=== PATIENT | female | born 1980 | race Caucasian/White ===

== ENCOUNTER 2016-08-30 14:00 | Inpatient (IN) | payer BC ==
[2016-08-30] MEDS: ELECTROLYTE-148 SOLN 1,000 ML IV SCH (17:15)
--- NOTE | 2016-08-30 18:27 | HP ---
Past Medical History - Primary Care Physician PCP:: Gracie Rodriguez - Admission Chief Complaint: Previous Section History of Present Illness: 36 edc 08/26/16 ega 40.4 weeks with previous cs for repeat CS AMA +AFM no rom no CALIX unremarkable care History Source: Patient - Past Medical History ...: 3 ...Para: 2 ...EDC by Kiya: 08/31/16 - Past Surgical History Past Surgical History: Yes: Hx Myomectomy: No Hx Transabdominal Cerclage: No - Smoking History Have you smoked in the past 12 months: No - Alcohol/Substance Use Hx Alcohol Use: No History of Substance Use: reports: None - Social History Usual Living Arrangement: Yes: With Spouse History of Recent Travel: No Home Medications - Allergies Allergies/Adverse Reactions: Allergies Allergy/AdvReac Type Severity Reaction Status Date / Time No Known Allergies Allergy Verified 08/30/16 18:38 - Home Medications Home Medications: Ambulatory Orders Vit No.130/Iron/FA [ Vitamins] 1 each PO DAILY 08/30/16 Review of Systems - Review of Systems Constitutional: reports: No Symptoms Eyes: reports: No Symptoms HENT: reports: No Symptoms Neck: reports: No Symptoms Cardiovascular: reports: No Symptoms Respiratory: reports: No Symptoms Gastrointestinal: reports: No Symptoms Genitourinary: reports: No Symptoms Breasts: reports: No Symptoms Reported Musculoskeletal: reports: No Symptoms Integumentary: reports: No Symptoms Neurological: reports: No Symptoms Endocrine: reports: No Symptoms Hematology/Lymphatic: reports: No Symptoms Psychiatric: reports: No Symptoms Physical Exam - Maternity Constitutional: Yes: Well Nourished, No Distress Neck: Yes: WNL Lungs: Clear to auscultation Breast(s): Yes: WNL - Abdominal Exam/OB Fundal Height: 40 Number of Fetuses: Single Presentation: Vertex Contractions: No Heart Rate Location: LL Category: I - Vaginal Exam/OB Vaginal Bleediing: No - Physical Exam Musculoskeletal: Yes: WNL Extremities: Yes: WNL Edema: No Psychiatric: Yes: WNL, Alert, Oriented Hemorrhage Risk Assessment - Risk Factors Medium Risk Factors: Yes: Prior , uterine surgery,or multiple laparotomies Risk Score: 1 Risk Level: Medium Risk Problem List - Problems (1) Previous delivery, antepartum Code(s): O34.219 - MATERNAL CARE FOR UNSP TYPE SCAR FROM PREVIOUS DEL Assessment/Plan IUp at 40.4 week Prev CS x1 AMA Plan Repeat Section
[2016-08-30] MEDS ORDERED: METHYLERGONOVINE MALEATE 0.2 MG/1 ML AMP IM PRN (18:29)
[2016-08-30] MEDS ORDERED: SENNOSIDES/DOCUSATE COMBO (SENNA PLUS) TABLET (UD) PO PRN (18:29)
[2016-08-30 18:31] VITALS: BMI 34.1
[2016-08-30] MEDS ORDERED: oxyCODONE HCL 5 MG TABLET PO PRN (18:41)
[2016-08-30] MEDS ORDERED: ACETAMINOPHEN 325 MG TABLET (FP) PO PRN (18:41)
[2016-08-30 20:21] LABS: ARTERIAL BLD GAS O2 SATURATION 29.7 % (90-98.9); ARTERIAL BLOOD GAS BASE EXCESS -1.7 meq/l (-2-2); ARTERIAL BLOOD GAS pH 7.37 (7.35-7.45)
[2016-08-30 20:22] LABS: LPM/O2% 21%; PT. ON O2? NO
[2016-08-30 20:23] LABS: TYPE OF O2 ROOM AIR
[2016-08-30 20:24] LABS: ARTERIAL BLOOD GAS PO2 16.9 mmHg (80-100)
[2016-08-30 20:26] LABS: VENOUS PH 7.47 (7.32-7.42)
[2016-08-30 20:28] LABS: VENOUS BLOOD GAS HCO3 19.8 meq/L (19-25)
--- NOTE | 2016-08-30 20:43 | OP ---
Operative Note - Note: Operative Date: 08/30/16 Pre-Operative Diagnosis: Previous Section Operation: Repeat Low Transverse Section Findings: Live female infant Post-Operative Diagnosis: Same as Pre-op Surgeon: Gracie Rodriguez Strike On Machine Operator: Timur Chauhan Anesthesiologist/GENERAL DOC: Antonia Garcia Anesthesia: Spinal Estimated Blood Loss (mls): 600 Operative Report Dictated: Yes
[2016-08-30] MEDS ORDERED: ONDANSETRON 4 MG/2 ML VIAL IVPB PRN (21:10)
[2016-08-30] MEDS: IBUPROFEN 800 MG/8 ML IJ IVPB PRN (22:30)
[2016-08-30] MEDS: D5W-LR W/ 20 UNITS OXYTOCIN 1,000 ML IV SCH (22:45)
--- NOTE | 2016-08-30 23:30 | OP ---
DATE OF OPERATION: 08/30/2016 PREOPERATIVE DIAGNOSIS: Previous section. OPERATION: Repeat low transverse section. POSTOPERATIVE DIAGNOSIS: Previous section, live female infant. SURGEON: TROY DUCKWORTH MD PROFILER: REAL [place]. unavailable. ANESTHESIA: Spinal. ESTIMATED BLOOD LOSS: 600 mL. WOUND CLASSIFICATION: Clean, contaminated. PROCEDURE: The patient was taken to the operating room, placed in supine position, prepped and draped in the usual sterile fashion. Pfannenstiel skin incision was made with a scalpel. Cautery was then used to go through layers of abdominal wall to the rectus fascia. The fascia was cut in the midline and cautery was then used to open the fascia in smiling fashion. Hook was then used to bluntly and sharply dissect the rectus muscle off the fascia. The muscle was split in the midline. The peritoneal cavity was then entered and carried upward and downward. Bladder retractor was then placed. Vesicouterine section was then entered with a scalpel an low transverse uterine incision was then made. The incision was carried upward using bandage scissors. Live female infant was delivered in LOT position, nuchal cord x1, reduced. Cord clamped and cut. Cord blood obtained. Placenta was manually extracted from the uterus. The uterus exteriorized and cleaned with clean lap pads. Uterine incision then closed using 0 Biosyn suture, first layer continuous interlocking, second layer imbricating the first layer. Hemostasis was achieved using [id number] sutures. Uterus interiorized. Tubes and ovaries noted to be normal. Peritoneal sweep done. The peritoneum closed using 0 Biosyn suture. Fascia was then closed using 0 Vicryl suture in 2 parts. Subcutaneous tissue was closed using 0 Biosyn suture and the skin was then closed using 3-0 Vicryl in subcuticular fashion. The wound was washed and dressed. The patient tolerated the procedure well and was taken to the recovery room in stable condition. TROY DUCKWORTH M.D. JOSE/[id number]
[2016-08-31] MEDS ORDERED: CITRIC ACID/SODIUM CITRATE 30 ML UNIT-DOSE CUP PO ONE (00:23)
[2016-08-31] MEDS ORDERED: TUBERCULIN PPD 5 TU/0.1ML SYRINGE (IN PATIENT USE ONLY) ID ONE (01:15)
[2016-08-31] MEDS: D5W-LR W/ 20 UNITS OXYTOCIN 1,000 ML IV SCH ×2 (05:21→12:35)
--- NOTE | 2016-08-31 07:06 | PN ---
Progress Note (SOAP) - Subjective Chief Complaint: Pt doing well - Current Medications Current Medications: Active Medications Acetaminophen (Tylenol -) 325 mg PO Q4H PRN PRN Reason: PAIN Stop: 09/02/16 18:40 Acetaminophen (Tylenol -) 650 mg PO Q4H PRN PRN Reason: PAIN Stop: 09/02/16 18:40 Bisacodyl (Dulcolax Suppository -) 10 mg RC PRN PRN PRN Reason: CONSTIPATION Diphenhydramine HCl (Benadryl Injection -) 25 mg IVPUSH Q4H PRN PRN Reason: Pruritis Parenteral Electrolytes (Plasma-Lyte 148 -) 1,000 mls @ 125 mls/hr IV ASDIR [facility] Last Admin: 08/30/16 17:15 Dose: 125 mls/hr Dextrose/Lactated Ringer's (Pitocin 20 Units In D5-Lr -) 1,000 mls @ 125 mls/ hr IV ASDIR [facility] Last Admin: 08/31/16 05:21 Dose: 125 mls/hr Ibuprofen (Motrin -) 600 mg PO Q4H PRN PRN Reason: PAIN Ibuprofen (Caldolor Injection -) 800 mg IVPB Q6H PRN PRN Reason: FEVER Last Admin: 08/30/16 22:30 Dose: 800 mg Methylergonovine Maleate (Methergine Injection -) 0.2 mg IM Q4H PRN PRN Reason: Excessive Bleeding (L&D) Oxycodone HCl (Roxicodone -) 5 mg PO Q4H PRN PRN Reason: PAIN SCALE 1-5 Oxycodone HCl (Roxicodone -) 10 mg PO Q4H PRN PRN Reason: PAIN SCALE 6-10 Multivit/Folic Acid/Iron ( Vitamins (Sjr) -) 1 tab PO DAILY [facility] Senna/Docusate Sodium (Pericolace -) 2 tablet PO HS PRN PRN Reason: CONSTIPATION Simethicone (Mylicon -) 80 mg PO Q4H PRN PRN Reason: GAS - Objective Vital Signs: Vital Signs Temperature 98.3 F 08/31/16 05:16 Pulse Rate 79 08/31/16 05:16 Respiratory Rate 18 08/31/16 05:22 Blood Pressure 118/57 08/31/16 05:16 O2 Sat by Pulse Oximetry (%) 99 08/30/16 21:45 Constitutional: Yes: Well Nourished, No Distress Neck: Yes: WNL Gastrointestinal: Yes: WNL ....Post : Yes: Uterus firm, Uterus non-tender Breast(s): Yes: WNL Edema: No Wound/Incision: Yes: Clean/Dry, Well Approximated, Open to air Psychiatric: Yes: WNL, Alert, Oriented Problem List - Problems (1) Previous delivery, antepartum Code(s): O34.219 - MATERNAL CARE FOR UNSP TYPE SCAR FROM PREVIOUS DEL (2) delivery delivered Code(s): O82 - ENCOUNTER FOR DELIVERY WITHOUT INDICATION Assessment/Plan POD 1 CS Plan OOB Clear Percocet
[2016-08-31 08:55] LABS: BASOPHIL 0.3 % (0-2.0); EOSINOPHIL 0.5 % (0-4.5); MCH 28.7 pg (25.7-33.7); MCHC 33.1 g/dl (32.0-36.0); MEAN CELL VOLUME 86.7 fl (80-96); MEAN PLT VOLUME 9.4 fl (7.5-11.1); NEUTROPHILS 81.8 % (42.8-82.8); PLATELET COUNT 114 K/MM3 (134-434); WHITE BLOOD COUNT 9.2 K/mm3 (4.0-10.0)
[2016-08-31] MEDS: PRENATAL VITAMINS W/ FOLIC ACID TABLET (FP) PO SCH (09:40)
[2016-08-31] MEDS: IBUPROFEN 800 MG/8 ML IJ IVPB PRN (12:35)
--- NOTE | 2016-08-31 16:54 | PN ---
Progress Note (short form) - Note Progress Note: ANESTHESIOLOGY POST-OP CHECK 36F s/p under spinal anesthesia POD #1. No acute complaints. Denies: N /V, backache, headache, numbness, weakness. Ambulating and tolerating PO. Pain 5 /10 and tolerable. Vital Signs Temperature 97.7 F 08/31/16 14:00 Pulse Rate 78 08/31/16 14:00 Respiratory Rate 18 08/31/16 16:00 Blood Pressure 106/58 08/31/16 14:00 O2 Sat by Pulse Oximetry (%) 99 08/30/16 21:45 Active Medications Acetaminophen (Tylenol -) 325 mg PO Q4H PRN PRN Reason: PAIN Stop: 09/02/16 18:40 Acetaminophen (Tylenol -) 650 mg PO Q4H PRN PRN Reason: PAIN Stop: 09/02/16 18:40 Bisacodyl (Dulcolax Suppository -) 10 mg RC PRN PRN PRN Reason: CONSTIPATION Diphenhydramine HCl (Benadryl Injection -) 25 mg IVPUSH Q4H PRN PRN Reason: Pruritis Parenteral Electrolytes (Plasma-Lyte 148 -) 1,000 mls @ 125 mls/hr IV ASDIR [facility] Last Admin: 08/30/16 17:15 Dose: 125 mls/hr Dextrose/Lactated Ringer's (Pitocin 20 Units In D5-Lr -) 1,000 mls @ 125 mls/ hr IV ASDIR [facility] Last Admin: 08/31/16 12:35 Dose: 125 mls/hr Ibuprofen (Motrin -) 600 mg PO Q4H PRN PRN Reason: PAIN Ibuprofen (Caldolor Injection -) 800 mg IVPB Q6H PRN PRN Reason: FEVER Last Admin: 08/31/16 12:35 Dose: 800 mg Methylergonovine Maleate (Methergine Injection -) 0.2 mg IM Q4H PRN PRN Reason: Excessive Bleeding (L&D) Oxycodone HCl (Roxicodone -) 5 mg PO Q4H PRN PRN Reason: PAIN SCALE 1-5 Oxycodone HCl (Roxicodone -) 10 mg PO Q4H PRN PRN Reason: PAIN SCALE 6-10 Multivit/Folic Acid/Iron ( Vitamins (Sjr) -) 1 tab PO DAILY [facility] Last Admin: 08/31/16 09:40 Dose: Not Given Senna/Docusate Sodium (Pericolace -) 2 tablet PO HS PRN PRN Reason: CONSTIPATION Simethicone (Mylicon -) 80 mg PO Q4H PRN PRN Reason: GAS Gen: awake, alert No apparent anesthesia complications. Pain well controlled. Continue management as per primary team.
[2016-08-31] MEDS ORDERED: BISACODYL 10 MG SUPP.RECT RC PRN (18:29)
[2016-08-31] MEDS ORDERED: OXYCODONE/APAP 5/325MG COMBO TABLET PO PRN ×2 (18:30)
[2016-08-31] MEDS: SIMETHICONE 80 MG TAB.CHEW (FP) PO PRN (19:50)
[2016-08-31] MEDS: ACETAMINOPHEN 325 MG TABLET (FP) PO PRN (19:51)
[2016-08-31] MEDS: IBUPROFEN 600 MG TABLET (FP) PO PRN (19:51)
[2016-09-01] MEDS: ACETAMINOPHEN 325 MG TABLET (FP) PO PRN ×5 (01:19→20:59)
[2016-09-01] MEDS: SIMETHICONE 80 MG TAB.CHEW (FP) PO PRN ×5 (01:19→20:58)
[2016-09-01] MEDS: IBUPROFEN 600 MG TABLET (FP) PO PRN ×5 (01:20→20:58)
[2016-09-01] MEDS: PRENATAL VITAMINS W/ FOLIC ACID TABLET (FP) PO SCH (09:26)
--- NOTE | 2016-09-01 10:35 | PN ---
Post Progress Note - Subjective Subjective: Pt seen/evaluated. Doing well. Pain controlled, tolerating diet. Ambulating, voiding, passing flatus. No CP/SOB/F/C/CALIX. Type of Delivery: Repeat C/S Vital Signs: Vital Signs Temperature 97.5 F L 09/01/16 10:00 Pulse Rate 77 09/01/16 10:00 Respiratory Rate 20 09/01/16 10:00 Blood Pressure 120/68 09/01/16 10:00 O2 Sat by Pulse Oximetry (%) 99 08/30/16 21:45 Breast Exam: Yes: Soft Uterus: Yes: Fundus Firm, Fundus below umbilicus Incision: Yes: Sutures intact (with steri strips) Abdomen/GI: Yes: Passing flatus, Tolerating PO. No: Abdomen soft, Abdominal Distention, Tender Lochia: No: Rubra Lochia, amount: Small Extremities: Yes: Calves non-tender. No: Edema Perineum: Yes: Intact Activity: Ambulating - Labs Labs: CBC WBC 9.2 K/mm3 (4.0-10.0) 08/31/16 07:45 RBC 3.38 M/mm3 (3.60-5.2) L 08/31/16 07:45 Hgb 9.7 GM/dL (10.7-15.3) L D 08/31/16 07:45 Hct 29.3 % (32.4-45.2) L D 08/31/16 07:45 MCV 86.7 fl (80-96) 08/31/16 07:45 MCHC 33.1 g/dl (32.0-36.0) 08/31/16 07:45 RDW 15.0 % (11.6-15.6) 08/31/16 07:45 Plt Count 114 K/MM3 (134-434) L D 08/31/16 07:45 MPV 9.4 fl (7.5-11.1) 08/31/16 07:45 Neutrophils % 81.8 % (42.8-82.8) 08/31/16 07:45 Lymphocytes % 12.9 % (8-40) 08/31/16 07:45 Monocytes % 4.5 % (3.8-10.2) 08/31/16 07:45 Eosinophils % 0.5 % (0-4.5) 08/31/16 07:45 Basophils % 0.3 % (0-2.0) 08/31/16 07:45 Problem List - Problems (1) delivery delivered Code(s): O82 - ENCOUNTER FOR DELIVERY WITHOUT INDICATION Assessment/Plan 36 y/o POD#2 s/p repeat low transverse c section, doing well - AFVSS - Hgb 9.7 post op - stable - regular diet, PO pain meds, encourage ambulation - plan for discharge home in a.m.
--- NOTE | 2016-09-01 10:36 | DS ---
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 Condition: Good - Instructions Diet, Activity, Other Instructions: Physical activity Resume your normal everyday activity as tolerated no heavy lifting or exercise until seen by your surgeon. You may walk unlimited tammi of and climb stairs. You may resume driving the car when you feel safe and comfortable behind the wheel. No sexual activity as instructed. Wound care If you have a bandage, leave it on, and keep dry for 48-72 hours. After that time discard the outer bandage. If they are tapes on the skin under the out of bandage leave them in place. They will peel off in the next 7 to 10 days. Do Not Peel them off. You may shower the day after surgery. If there are tapes present on the skin, you may shower over them. Diet There are no dietary restrictions. Eat healthy, high-fiber foods. Drink 6 to 8 glasses of liquid each day. This will assist in keeping your bowels are regular. Pain management You may take Tylenol or acetaminophen or Ibuprofen (for example, Motrin, Advil etc.) from my pain prescription medication is ordered should be taken as prescribed for moderate to severe pain. Call MD for any of the following: Severe pain not relieved by medication Fever of 101 or higher Excessive bleeding or drainage on dressing Inability to urinate Referrals: Gracie Rodriguez MD [Staff Physician] - 1 Week Disposition: HOME - Home Medications Comprehensive Discharge Medication List: Ambulatory Orders Oxycodone HCl/Acetaminophen [Percocet 5-325 mg Tablet -] 1 tab PO Q4H #20 tablet MDD 6 08/30/16 Vit No.130/Iron/FA [ Vitamins] 1 each PO DAILY 08/30/16
[2016-09-01] MEDS: ELECTROLYTE-148 SOLN 1,000 ML IV SCH (19:11)
[2016-09-01] MEDS: D5W-LR W/ 20 UNITS OXYTOCIN 1,000 ML IV SCH (19:11)
[2016-09-01] MEDS: oxyCODONE HCL 5 MG TABLET PO PRN (20:58)
[2016-09-02] MEDS: IBUPROFEN 600 MG TABLET (FP) PO PRN (02:51)
[2016-09-02] MEDS: SIMETHICONE 80 MG TAB.CHEW (FP) PO PRN ×2 (02:51→08:28)
[2016-09-02] MEDS: ACETAMINOPHEN 325 MG TABLET (FP) PO PRN ×2 (02:51→08:30)
[2016-09-02] MEDS: oxyCODONE HCL 5 MG TABLET PO PRN ×2 (02:52→08:28)
[2016-09-02 08:39] LABS: BASOPHIL 0.3 % (0-2.0); EOSINOPHIL 1.4 % (0-4.5); MCH 28.2 pg (25.7-33.7); MCHC 32.4 g/dl (32.0-36.0); NEUTROPHILS 73.2 % (42.8-82.8); PLATELET COUNT 124 K/MM3 (134-434); RDW 15.3 % (11.6-15.6); WHITE BLOOD COUNT 7.3 K/mm3 (4.0-10.0)
--- NOTE | 2016-09-02 08:52 | PN ---
Post Progress Note - Subjective Subjective: Pt without complaints. Pain controlled, tolerating diet, ambulating, voiding. NO CP/SOB/F/C/CALIX. Type of Delivery: Repeat C/S Vital Signs: Vital Signs Temperature 98.0 F 09/01/16 22:00 Pulse Rate 71 09/01/16 22:00 Respiratory Rate 18 09/01/16 22:00 Blood Pressure 107/63 09/01/16 22:00 O2 Sat by Pulse Oximetry (%) 99 08/30/16 21:45 Breast Exam: Yes: Soft Uterus: Yes: Fundus Firm, Fundus below umbilicus Incision: Yes: Sutures intact Abdomen/GI: Yes: Abdomen soft, Passing flatus, Tolerating PO. No: Tender Lochia: Yes: Rubra Lochia, amount: Small Extremities: Yes: Calves non-tender. No: Edema Perineum: Yes: Intact Activity: Ambulating - Labs Labs: CBC WBC 7.3 K/mm3 (4.0-10.0) 09/02/16 07:50 RBC 3.33 M/mm3 (3.60-5.2) L 09/02/16 07:50 Hgb 9.4 GM/dL (10.7-15.3) L 09/02/16 07:50 Hct 29.0 % (32.4-45.2) L 09/02/16 07:50 MCV 87.0 fl (80-96) 09/02/16 07:50 MCHC 32.4 g/dl (32.0-36.0) 09/02/16 07:50 RDW 15.3 % (11.6-15.6) 09/02/16 07:50 Plt Count 124 K/MM3 (134-434) L 09/02/16 07:50 MPV 9.0 fl (7.5-11.1) 09/02/16 07:50 Neutrophils % 73.2 % (42.8-82.8) 09/02/16 07:50 Lymphocytes % 20.0 % (8-40) D 09/02/16 07:50 Monocytes % 5.1 % (3.8-10.2) 09/02/16 07:50 Eosinophils % 1.4 % (0-4.5) D 09/02/16 07:50 Basophils % 0.3 % (0-2.0) 09/02/16 07:50 Problem List - Problems (1) delivery delivered Code(s): O82 - ENCOUNTER FOR DELIVERY WITHOUT INDICATION Assessment/Plan 36 y/o POD#3 s/p repeat low transverse c section, doing well - AFVSS - Hgb 9.4 post op - stablej, asymptomatic - continue vitamins - regular diet, PO pain meds, encourage ambulation - discharge home today
[2016-09-02 09:41] VITALS: BP 105/66; PULSE 56; TEMP 97.6
[2016-09-02] MEDS: PRENATAL VITAMINS W/ FOLIC ACID TABLET (FP) PO SCH (10:08)
--- NOTE | 2016-09-05 13:30 | PATH ---
Surgical Pathology Report Patient Name: AQUILES ELAINE [facility]. Rec. #: [id number] /Age/Gender: 1980 (Age: 36) / F Account: [id number] Location: [facility] OBS/SERVICES ADVISOR Taken: 08/30/2016 Received: 09/01/2016 Reported: 09/05/2016 Physicians: Gracie Rodriguez M.D. Specimen(s) Received PLACENTA Clinical History C/section 2007 Repeat c/section Final Diagnosis PLACENTA, DELIVERY: FOCALLY DISRUPTED, SMALL (<400 GM), THIRD TRIMESTER PLACENTA WITH MODERATE PREVILLOUS, PERIVILLOUS, AND PRECHORIONIC FIBRIN DEPOSITION, THREE VESSEL UMBILICAL CORD, AND PLACENTAL MEMBRANES FOCAL MILD AMNION HYPERPLASIA. Electronically Signed Owen Jama M.D. Gross Description The specimen is received fresh, labeled "placenta" and is a 395 gram, 15.0 x 13.5 x 2.7 cm placenta with attached membranes and umbilical cord. The attached membranes are dale, focally thickened and insert marginally. The umbilical cord measures 12.5 cm in length and averages 1 cm in diameter. The cord inserts eccentrically, 3.5 cm to the nearest margin. No true knots or strictures are identified. Cut surface of the umbilical cord reveals 3 vessels. The surface is carter blue with fibrin deposition and appropriate caliber vessels. The maternal surface is red-brown and intact. Sectioning reveals red-brown, spongy parenchyma. No focal lesions are identified. Call Worker sections are submitted in three cassettes as follows: 1- membrane rolls and umbilical cord; 2-3- full thickness sections of placenta. /09/04/2016 [facility]09/04/2016
== END 2016-09-02 12:30 | disposition home or self-care (01) | DRG 766 ==
LOC: JLDR 17:08 → J3W 23:16
PROVIDERS: ADMIT Obstetrics & Gynecology; ATTEND Obstetrics & Gynecology
PROC: 10D00Z1 Extraction of Products of Conception, Low, Open Approach (ICD-10-PCS; principal; 2016-08-30)
DX: O34.211 Maternal care for low transverse scar from previous cesarean delivery (principal); Z3A.40 40 weeks gestation of pregnancy; O09.523 Supervision of elderly multigravida, third trimester; Z37.0 Single live birth
CPT/HCPCS: 36415; 36600; 82803; 85025; 88307-TC; 94010